=== PATIENT | male | born 2000 | race Caucasian/White ===

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

== ENCOUNTER 2022-02-17 07:05 | Day surgery (SDC) | payer BC ==
[2022-02-16 13:47] VITALS: BMI 21.6
[2022-02-17] MEDS ORDERED: fentaNYL PF 100 MCG/2 ML SYRINGE ONE ×2 (09:12→09:13)
[2022-02-17] MEDS ORDERED: Midazolam HCl 2 mg/2 ml Vial ONE (09:13)
[2022-02-17] MEDS ORDERED: Succinylcholine 200 MG/10 ml SYRINGE FS ONE (09:25)
[2022-02-17] MEDS ORDERED: Ondansetron PF 4 MG/2 ML Vial ONE (09:25)
[2022-02-17] MEDS ORDERED: Rocuronium Bromide 10 MG/ML (10ML VIAL) ONE (09:25)
[2022-02-17] MEDS ORDERED: Dexamethasone 20 MG/5 ML VIAL ONE (09:25)
[2022-02-17] MEDS ORDERED: PROPOFOL 200 MG/20 ML VIAL ONE (09:25)
[2022-02-17] MEDS ORDERED: FENTANYL 50 MCG/ML 1 ML VIAL ONE ×2 (10:41→11:03)
[2022-02-17] MEDS ORDERED: Hydrocodone-Acetamin 15 ML UDCUP ONE (12:52)
== END 2022-02-17 12:25 | disposition home or self-care (01) ==
LOC: EDSEX → SDC 07:05 → MERGE 12:52
PROVIDERS: ATTEND Specialist
PROC: 0CTPXZZ Resection of Tonsils, External Approach (ICD-10-PCS; principal; 2022-02-17)
DX: J35.01 Chronic tonsillitis (principal); J02.9 Acute pharyngitis, unspecified; Z88.1 Allergy status to other antibiotic agents; Z91.013 Allergy to seafood
CPT/HCPCS: 88304; J1100; J2250; J2405; J2704; J3010